=== PATIENT | female | born 1985 | race American Indian/Alaskan Native ===

== ENCOUNTER 2021-06-08 06:26 | Emergency (ER) | payer SELFPAY ==
--- NOTE | 2021-06-08 10:15 | Event Note ---
ED Screening Note ED Screening Note: states she took "some drugs last night" does not know what she took reports she also using crack cocaine, ETOH, cigarettes, marijuana denies any HI, SI was not trying to harm herself, she states she took it because "she is a drug addict" states she was brought in by police otherwise would not have come to the ED PMHx asthma no allergies to meds she has no complaints at this time This initial assessment/diagnostic orders/clinical plan/treatment(s) is/are subject to change based on patients health status, clinical progression and re- assessment by fellow clinical providers in the ED. Further treatment and workup at subsequent clinical providers discretion. Patient/guardian urged not to elope from the ED as their condition may be serious if not clinically assessed and managed. Initial orders include: medical clearance
[2021-06-08 11:11] LABS: Alanine Aminotransferase 24 units/L (7-56); Albumin 4.4 g/dL (3.9-5); Blood Urea Nitrogen 7 mg/dL (7-17); Calcium 9.7 mg/dL (8.4-10.2); Hemolysis Index 18
[2021-06-08 11:21] LABS: BUN/Creatinine Ratio 12
[2021-06-08 11:47] LABS: Basophils % (Auto) 0.5 % (0.0-1.8); Eosinophils % (Auto) 0.2 % (0.0-4.3); Hematocrit 36.1 % (30.3-42.9); Hemoglobin 12.6 gm/dl (10.1-14.3); Lymphocytes # (Auto) 2.1 K/mm3 (1.2-5.4); Lymphocytes % (Auto) 30.2 % (13.4-35.0); Mean Corpuscular HGB Conc 35 % (30-34); Mean Corpuscular Volume 108 fl (79-97); Monocytes # (Auto) 0.7 K/mm3 (0.0-0.8); Platelet Count 245 K/mm3 (140-440); Red Blood Count 3.35 M/mm3 (3.65-5.03)
[2021-06-08 11:59] LABS: Benzodiazepines Screen,Urine Negative; Methadone Screen,Urine Negative; Opiate Screen,Urine Negative
[2021-06-08 12:11] LABS: Bacteria,Urine 2+ /HPF (Negative); Bilirubin,Urine NEG (Negative); Blood,Urine SM (Negative); Color,Urine Amber (Yellow); Mucus,Urine 3+ /HPF
[2021-06-08 12:12] LABS: Protein,Urine >500 mg/dL (Negative)
[2021-06-08 12:22] LABS: Amphetamine Screen,Urine PRESUMPTIVE POSITIVE; Cannabinoid Screen,Urine PRESUMPTIVE POSITIVE; Cocaine Screen,Urine PRESUMPTIVE POSITIVE
[2021-06-09] MEDS ORDERED: TETANUS,DIPH,PERTUSS(ACELL) VACCINE 0.5 ML SYRINGE IM ONE (07:51)
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
--- NOTE | 2021-06-09 09:01 | XRay Report ---
XR chest routine 2V INDICATION / CLINICAL INFORMATION: Swollen area at left lower parasternum. COMPARISON: 01/15/2020 FINDINGS: SUPPORT DEVICES: None. HEART /PULMONARY VASCULATURE: No significant abnormality. LUNGS / PLEURA: No significant pulmonary or pleural abnormality. No pneumothorax. ADDITIONAL FINDINGS: No significant additional findings. Visualized soft tissues are unremarkable by radiograph. IMPRESSION: 1. No acute findings. Signer Name: Parminder Mosley MD Signed: 06/09/2021 8:57 AM Workstation Name: [id number]
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
[2021-06-09] MEDS ORDERED: MAGNESIUM HYDROXIDE (MOM) ORAL LIQD UDC PO PRN (14:21)
[2021-06-09] MEDS ORDERED: ACETAMINOPHEN 325 MG TAB PO PRN (14:21)
[2021-06-09] MEDS ORDERED: ALUM-MAG HYDROXIDE-SIMETHICONE 200-200-20MG/5ML ORAL LIQD 30 ML PO PRN (14:21)
--- NOTE | 2021-06-10 09:21 | Progress Note ---
Subjective - Reason for Consult Consult date: 06/10/21 Reason for consult: Hallucinations - Chief Complaint Chief complaint: The patient was seen this morning, she reports feeling better. She denies any current suicidal/homicidal ideation and denies hallucinations. REVIEW OF SYSTEMS Constitutional: Negative for weight loss ENT: Negative for stridor Respiratory: Negative for cough or hemoptysis All other systems reviewed and are negative MENTAL STATUS EXAMINATION General Appearance and Behavior: Age appropriate, good hygiene, wearing appropriate clothes. Cooperation: Cooperative Psychomotor Behavior: Psychomotor normal Mood:"good" Affect and affective range: Congruent with stated mood Thought Process: Goal Directed Thought Content: Not suicidal Speech: Normal volume, Regular rate and rhythm, Suicidal Ideation: Denies Homicidal Ideation: Denies Hallucinations: Denies Delusions:None Impulse Control: Unimpaired Insight and Judgment: Limited, poor judgment Memory: Normal Attention:Distractible Orientation: alert and oriented Assessment and Plan (1) Other stimulant use, unspecified with stimulant-induced psychosis disorder, unspecified- F15. 640 Current Visit: Yes Status: Acute Discontinue 1013 The patient to comply with previously prescribed medications Risks, benefits and alternatives of medications discussed with the patient, questions answered and consent obtained from patient. PSYCHOTHERAPY: Supportive psychotherapy provided MEDICAL: Per primary team DELIRIUM PRECAUTIONS: Please re-orient patient frequently, keep lights on during the day, and minimize benzodiazepines and opiates as these medications could worsen patient's confusion. TIRE CENTER MANAGER: Defer to primary DISPOSITION:Do not recommend acute inpatient psychiatric hospitalization at this time. Do not recommend acute inpatient psychiatric hospitalization at this time. The patient knows that if suicidal/homicidal ideation or any endangering thoughts arise to seek for emergent assistance including but not limited to crisis hot line and emergency room. Windows Migration Technician will provide patient with resources. FOLLOW-UP: Will sign off. Please contact with any questions and/or concerns. Mental Status Exam - Vital signs Last Vital Signs Temp 97.8 F 06/10/21 02:40 Pulse 79 06/10/21 09:01 Resp 16 06/10/21 09:01 BP 129/78 06/10/21 09:01 Pulse Ox 99 06/10/21 09:01
--- NOTE | 2021-06-10 11:53 | Emergency Department Report ---
Blank Doc - Documentation Documentation: SOAP note Subjective: 35-year-old female presented here with acute psychosis of paranoia after drug Objective: Patient has no complaints. Denies psychosis or suicidal ideation at this time. No events overnight cooperative. Did not require any meds Vital Signs - 24 hr 06/09/21 06/10/21 06/10/21 20:02 02:40 09:01 Temperature 98.5 F 97.8 F Pulse Rate 85 75 79 Respiratory 18 18 16 Rate Blood Pressure 114/80 120/74 129/78 [Left] O2 Sat by Pulse 99 100 99 Oximetry Assessment: 35-year-old female with schizophrenia polysubstance abuse currently denies suicidal ideation. Patient had a swollen/growth area of her anterior left lower chest x3 months and stressed importance of outpatient follow-up further for evaluation Plan: 1013 distended as per mental With recommend discharge with outpatient follow-up
[2021-06-10 13:36] VITALS: BP 121/95
== END 2021-06-10 13:37 | disposition home or self-care (01) ==
LOC: ED 06:26
DX: F23 Brief psychotic disorder (principal); R45.851 Suicidal ideations; Z20.822 Contact with and (suspected) exposure to COVID-19; F19.10 Other psychoactive substance abuse, uncomplicated; F22 Delusional disorders; Z79.899 Other long term (current) drug therapy
CPT/HCPCS: 36415; 71046; 80053; 80307; 81001; 84703; 85025; 87086; 90471; 90715; 99284; U0003; 80320; G0480

== ENCOUNTER 2021-09-06 11:03 | Emergency (ER) | payer SELFPAY ==
--- NOTE | 2021-09-06 11:33 | Emergency Department Report ---
ED Psych HPI - General Chief Complaint: Psych Stated Complaint: refill on psych meds Time Seen by Provider: 09/06/21 11:23 Source: EMS Mode of arrival: Stretcher - History of Present Illness Initial Comments: 36-year-old female, history of bipolar disorder, schizophrenia, presents to ED for mental health evaluation. Per triage note, patient was at the [facility] station and went to police officers stating that she needed a refill on her psychiatric medications. Patient states she has been off her medications for "a while." Patient states she feels paranoid. Patient reports auditory and visual hallucinations. She states she is seeing demons. States she is hearing voices telling her to kill herself, but states she does not want to kill herself. Patient reports crack cocaine use last night. MD Complaint: other -: unknown Associated Psychiatric Symptoms: auditory hallucinations, visual hallucinations Improves With: none Worsens With: none Context: recent drug abuse, not taking psychiatric Associated Symptoms: denies other symptoms Treatments Prior to Arrival: none - Related Data Allergies Allergy/AdvReac Type Severity Reaction Status Date / Time No Known Allergies Allergy Verified 06/08/21 06:47 ED Review of Systems ROS: Stated complaint: refill on psych meds Other details as noted in HPI Comment: All other systems reviewed and negative Psychiatric: auditory hallucinations, visual hallucinations. denies: homicidal thoughts, suicidal thoughts ED Past Medical Hx - Past Medical History Hx Asthma: Yes Additional medical history: bipolar. schizo. depression - Social History Smoking Status: Current Every Day Smoker Substance Use Type: Alcohol, Cocaine, Marijuana, Methamphetamines ED Physical Exam - General Limitations: No Limitations General appearance: alert, in no apparent distress - Head Head exam: Present: atraumatic, normocephalic - Eye Eye exam: Present: normal appearance, EOMI - ENT ENT exam: Present: mucous membranes moist - Neck Neck exam: Present: normal inspection - Respiratory Respiratory exam: Present: normal lung sounds bilaterally. Absent: respiratory distress - Cardiovascular Cardiovascular Exam: Present: regular rate, normal rhythm - GI/Abdominal GI/Abdominal exam: Present: soft. Absent: distended, tenderness - Extremities Exam Extremities exam: Present: normal inspection - Neurological Exam Neurological exam: Present: alert, oriented X3 - Psychiatric Psychiatric exam: Present: other (Patient appears to be paranoid, looking around while speaking) - Skin Skin exam: Present: warm, dry, intact, normal color ED Course Vital Signs 09/06/21 09/06/21 09/06/21 11:04 12:34 20:11 Temperature 98.0 F 98.4 F 98.8 F Pulse Rate 89 95 H 89 Respiratory 17 18 18 Rate Blood Pressure 147/97 151/84 124/68 [Left] O2 Sat by Pulse 98 97 98 Oximetry 09/07/21 12:19 Temperature 98.2 F Pulse Rate 83 Respiratory 18 Rate Blood Pressure 109/79 [Left] O2 Sat by Pulse 99 Oximetry ED Medical Decision Making - Lab Data Result diagrams: 09/06/21 11:52 09/06/21 11:52 - Medical Decision Making 36-year-old female presents to ED with auditory and visual hallucinations. Reports she has been off of her psychiatric medications. Patient is medically clear for mental health evaluation. Will dispo per psych. Critical care attestation.: If time is entered above; I have spent that time in minutes in the direct care of this critically ill patient, excluding procedure time. ED Disposition Clinical Impression: Cocaine abuse, Schizophrenia Disposition: [address] [place] [address] Is pt being admited?: No Condition: Stable Referrals: PRIMARY CARE, [Primary Care Provider] - 3-5 Days
[2021-09-06 11:53] LABS: Bacteria,Urine 1+ /HPF (Negative); Bilirubin,Urine NEG (Negative); Blood,Urine NEG (Negative); Color,Urine Straw (Yellow); Protein,Urine <15 mg/dL mg/dL (Negative); Urobilinogen,Urine < 2.0 mg/dL (<2.0)
[2021-09-06 11:59] LABS: Amphetamine Screen,Urine Negative; Benzodiazepines Screen,Urine Negative; Cannabinoid Screen,Urine Negative; Methadone Screen,Urine Negative; Opiate Screen,Urine Negative
[2021-09-06 12:19] LABS: Basophils % (Auto) 0.6 % (0.0-1.8); Eosinophils % (Auto) 0.9 % (0.0-4.3); Hematocrit 37.1 % (30.3-42.9); Hemoglobin 12.4 gm/dl (10.1-14.3); Lymphocytes # (Auto) 1.2 K/mm3 (1.2-5.4); Mean Corpuscular HGB Conc 33 % (30-34); Mean Corpuscular Volume 106 fl (79-97); Monocytes # (Auto) 0.3 K/mm3 (0.0-0.8); Monocytes % (Auto) 8.6 % (0.0-7.3); Red Cell Distribution Width 14.8 % (13.2-15.2)
[2021-09-06 12:20] LABS: Cocaine Screen,Urine Positive
[2021-09-06 12:27] LABS: Platelet Count 180 K/mm3 (140-440)
[2021-09-06 12:39] LABS: Blood Urea Nitrogen 2 mg/dL (7-17); Calcium 9.2 mg/dL (8.4-10.2); Hemolysis Index 7
[2021-09-06 12:40] LABS: BUN/Creatinine Ratio 3
[2021-09-06] MEDS ORDERED: hydrOXYzine PAMOATE 25 MG CAP PO ONE (18:10)
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
[2021-09-07] MEDS ORDERED: hydrOXYzine PAMOATE 25 MG CAP PO SCH (10:00)
[2021-09-07] MEDS ORDERED: QUEtiapine 100 MG TAB PO SCH (10:00)
[2021-09-07 12:20] VITALS: BP 109/79
--- NOTE | 2021-09-07 15:46 | Event Note ---
Date: 09/07/21 S: No events reported overnight O: Vital Signs - 8 hr 09/07/21 12:19 Temperature 98.2 F Pulse Rate 83 Respiratory 18 Rate Blood Pressure 109/79 [Left] O2 Sat by Pulse 99 Oximetry A: Schizophrenia, polysubstance dependence P: Continue 1013, awaiting inpatient psych
[2021-09-07] MEDS ORDERED: DOXEPIN 10 MG CAP PO SCH (22:00)
== END 2021-09-07 16:30 ==
LOC: ED 11:03
DX: F14.20 Cocaine dependence, uncomplicated (principal); F20.9 Schizophrenia, unspecified; Z20.822 Contact with and (suspected) exposure to COVID-19; F17.200 Nicotine dependence, unspecified, uncomplicated; J45.909 Unspecified asthma, uncomplicated; F10.20 Alcohol dependence, uncomplicated
CPT/HCPCS: 36415; 80048; 80307; 81001; 84703; 85025; 99285; Q0177; U0003; 80320; J3490; G0480